=== PATIENT | male | born 1980 | race Caucasian/White ===

== ENCOUNTER 2022-08-05 00:06 | Emergency (ER) | payer BC, SELFPAY ==
[2022-08-05 00:22] VITALS: BP 140/93; PULSE 104; RESP 18; TEMP 36.4; O2SAT 95; BMI 38.2
--- NOTE | 2022-08-05 01:04 | DI.RAD.S_ITS ---
PROCEDURE: XR KNEE LT 3V INDICATIONS: swelling, pain TECHNIQUE: 3 views of the knee were acquired. COMPARISON: None. FINDINGS: Bones: No fractures or dislocations. No suspicious bony lesions. Soft tissues: There is a large joint effusion. No suspicious soft tissue calcifications. IMPRESSION: 1. No fracture or dislocation. 2. Large joint effusion. Dictated by: Glen Sears M.D. on 08/05/2022 at 2:00 Approved by: Glen Sears M.D. on 08/05/2022 at 2:01
--- NOTE | 2022-08-05 02:16 | ED_ITS ---
HPI - Extremity Problem <Elizabeth Dexter DO - Last Filed: 08/06/22 05:52> General Chief complaint: Extremity Problem,Nontraumatic Stated complaint: ghout left knee Time Seen by Provider: 08/05/22 02:15 Source: patient Mode of arrival: Wheelchair Limitations: no limitations History of Present Illness HPI Narrative: This is a 42-year-old male with hypertension, prediabetes and low testosterone who presents with left knee pain and possible gout. Patient states he is had gout in the past in his toe and knee, he states he had some testing but it was negative he states the swelling went away he had been set up for an MRI of his knee. He does not describe arthrocentesis. Patient states he also injected testosterone the day before in his mid thigh on the left side. He states he also went golfing the day before and tweaked his leg and had pain in the posterior knee and thigh after golfing on Wednesday as well as Wednesday. No fevers, no chest pain or shortness of breath no nausea or vomiting no other GI or urinary symptoms. Patient states it has not been red, had any skin changes or w armth. He states it has been swelling. He has pain particularly trying to fully extend it but can move it. He has been able to weightbear. Patient denies any numbness, tingling or other changes. He states he has had swelling in that left knee before and was seen and evaluated for possible gout. He states he was given indomethacin took it for about a week with not much change, continued with Aleve and it ultimately went away. He is not had any surgeries on that knee. He denies any drug allergies. Uses smokeless tobacco, occasional alcohol, no illicit. He is working locally but lives in [place]. Related Data Allergies Allergy/AdvReac Type Severity Reaction Status Date / Time No Known Drug Allergies Allergy Verified 08/05/22 02:40 Review of Systems <DO Shawan Bosch Last Filed: 08/06/22 05:52> Review of Systems ROS Unobtainable: All systems reviewed & are unremarkable except as noted in HPI and below Patient History <Elizabeth Dexter DO - Last Filed: 08/06/22 05:52> tobacco type: smokeless tobacco alcohol intake frequency: a few times a month Substance Use Type: does not use Exam <Elizabeth Dexter DO - Last Filed: 08/06/22 05:52> Narrative Exam Narrative: GENERAL: Alert and oriented x three, male in mild distress. HEENT: Head normocephalic, atraumatic, EOMI, pupils reactive, face symmetric, moist mucous membranes NECK: Supple, full range of motion CARDIOVASCULAR: Regular rate and rhythm without murmurs, rubs or gallops. RESPIRATORY: Breath sounds equal bilaterally, no wheezes rales or rhonchi. ABDOMEN: Soft, nontender. Normoactive bowel sounds all 4 quadrants. No guarding or rebound, rigidity, no mass EXTREMITIES: Normal range of motion, no clubbing. Neurovascularly intact. Patient has small light knee, no warmth, erythema or skin changes. Patient does not have any tenderness or skin changes of the thigh. No tenderness in the posterior knee. Patient has normal flexion little bit increased difficulty with full extension. 5/5 muscle strength. 2+ dorsalis pedis. Normal sensation throughout. NEUROLOGICAL: Cranial nerves II through XII grossly intact. Moving all extremities SKIN: Warm, dry, no petechiae, no rashes or lesions, unable to appreciate the area where patient injected his leg. Initial Vital Signs Initial Vital Signs: Vital Signs Temperature 97.6 F 08/05/22 00:22 Pulse Rate 104 H 08/05/22 00:22 Respiratory Rate 18 08/05/22 00:22 Blood Pressure 140/93 H 08/05/22 00:22 Pulse Oximetry 95 08/05/22 00:22 Oxygen Delivery Method Room Air 08/05/22 00:22 <Husam Ibrahim MD - Last Filed: 08/08/22 12:52> Initial Vital Signs Initial Vital Signs: Vital Signs Temperature 97.6 F 08/05/22 00:22 Pulse Rate 104 H 08/05/22 00:22 Respiratory Rate 18 08/05/22 00:22 Blood Pressure 140/93 H 08/05/22 00:22 Pulse Oximetry 95 08/05/22 00:22 Oxygen Delivery Method Room Air 08/05/22 00:22 Procedures <Elizabeth Dexter DO - Last Filed: 08/06/22 05:52> Joint Aspiration Joint Asp./Inject. 1: Side of body: left Joint Aspirated: knee Ultrasound Guidance: No Skin Prep: sterile prep and drape (povidone-iodine 1%) Local Anesthetic: lidocaine 2% Amount of anesthesia used (mL): 5 Needle Size Used: 20G Fluid Obtained: turbid Total fluid obtained (mL): 50 Medication Injected, if any: Lidocaine Amount of medication injected (mL): 5 Patient Tolerated Procedure: Well and No complications Course <Elizabeth Dexter DO - Last Filed: 08/06/22 05:52> Orders Ordered: Discontinued Medications Ketorolac Tromethamine (Ketorolac 30 Mg/Ml Vial) 15 mg IV NOW ONE Stop: 08/05/22 02:29 Last Admin: 08/05/22 02:41 Dose: Not Given Documented By: Ketorolac Tromethamine (Ketorolac 30 Mg/Ml Vial) 30 mg IM NOW ONE Stop: 08/05/22 02:41 Last Admin: 08/05/22 02:52 Dose: 30 mg Documented By: Lidocaine HCl (Lidocaine 2% Inj Sdv 5ml) 5 ml INJ INTRA-OP ONE Stop: 08/05/22 04:07 Last Admin: 08/05/22 04:12 Dose: 5 ml Documented By: Vital Signs Vital signs: Vital Signs - 8 hr 08/05/22 00:22 08/05/22 04:34 08/05/22 06:47 Temperature 97.6 F Pulse Rate 104 H 89 96 H Respiratory Rate 18 18 18 Blood Pressure 140/93 H 138/93 H 152/77 H Pulse Oximetry 95 97 96 Oxygen Delivery Method Room Air Room Air Room Air 08/05/22 07:51 Temperature 97.9 F Pulse Rate 96 H Respiratory Rate 16 Blood Pressure 132/96 H Pulse Oximetry 96 Oxygen Delivery Method Room Air <Husam Ibrahim MD - Last Filed: 08/08/22 12:52> Course Course Narrative: August 05, 2022 at 7:00 a.m.. Sign-out from Dr. Dexter, patient laboratory studies are pending. Likely not infected knee because patient has been up and walking. Patient received Toradol. Likely discharge home. Orders Ordered: Discontinued Medications Ketorolac Tromethamine (Ketorolac 30 Mg/Ml Vial) 15 mg IV NOW ONE Stop: 08/05/22 02:29 Last Admin: 08/05/22 02:41 Dose: Not Given Documented By: Ketorolac Tromethamine (Ketorolac 30 Mg/Ml Vial) 30 mg IM NOW ONE Stop: 08/05/22 02:41 Last Admin: 08/05/22 02:52 Dose: 30 mg Documented By: Lidocaine HCl (Lidocaine 2% Inj Sdv 5ml) 5 ml INJ INTRA-OP ONE Stop: 08/05/22 04:07 Last Admin: 08/05/22 04:12 Dose: 5 ml Documented By: Vital Signs Vital signs: Vital Signs - 8 hr 08/05/22 00:22 08/05/22 04:34 08/05/22 06:47 Temperature 97.6 F Pulse Rate 104 H 89 96 H Respiratory Rate 18 18 18 Blood Pressure 140/93 H 138/93 H 152/77 H Pulse Oximetry 95 97 96 Oxygen Delivery Method Room Air Room Air Room Air 08/05/22 07:51 Temperature 97.9 F Pulse Rate 96 H Respiratory Rate 16 Blood Pressure 132/96 H Pulse Oximetry 96 Oxygen Delivery Method Room Air MDM - Extremity (Nontraumatic) <Elizabeth Dexter DO - Last Filed: 08/06/22 05:52> Lab Data 08/05/22 02:33 08/05/22 03:03 Labs: Lab Results 08/05/22 08/05/22 08/05/22 Range/Units 02:33 03:03 04:26 WBC 12.4 H (4.5-11.0) X10^3/uL RBC 4.54 (4.5-5.9) X10^6/uL Hgb 13.3 L (13.5-17.5) g/dL Hct 39.6 L (41-53) % MCV 87.0 (80-100) fL MCH 29.2 (26-34) PG MCHC 33.6 (30-36) % RDW 14.0 (11.6-14.8) % Plt Count 182 (150-400) X10^3/uL Neut % (Auto) 70.3 (50-75) % Lymph % (Auto) 15.7 L (25-40) % [place] % (Auto) 11.9 (3-14) % Eos % (Auto) 1.7 L (2-4) % Baso % (Auto) 0.4 (0-2) % Neut # (Auto) 8800 H (9619-8895) /uL Lymph # (Auto) 2000 (0599-3003) /uL [place] # (Auto) 1500 H (0-900) /uL Eos # (Auto) 200 (0-450) /uL Baso # (Auto) 100 (0-100) /uL ESR 21 H (0-15) MM/HR Sodium 135 L (137-145) mmol/L Potassium 3.6 (3.4-5.1) mmol/L Chloride 100 (98-107) mmol/L Carbon Dioxide 29 (22-32) mmol/L BUN 19 (9-20) mg/dL Creatinine 0.89 (0.66-1.25) mg/dL Estimated GFR > 60 (>60) mL/min BUN/Creatinine Ratio 21.3 (6-22) Glucose 134 H (70-100) mg/dL Uric Acid 7.1 (3.5-8.5) mg/dL Calcium 8.5 (8.4-10.2) mg/dL C-Reactive Protein 5.4 H (<1.0) mg/dL Procalcitonin 0.07 (<0.5) ng/mL Fluid Color Yellow Fluid Appearance Cloudy Fluid RBC 5745 /uL Fld Tot Nucleated Cell 23303 /uL Fluid Polynuclear WBCs 94 % Fluid Mononuclear WBCs 6 % Fluid Eosinophils 0 % Fluid Other Cells 0 % Fluid Crystals (NONE) Body Fluid Clot No clots present 08/05/22 Range/Units 04:26 WBC (4.5-11.0) X10^3/uL RBC (4.5-5.9) X10^6/uL Hgb (13.5-17.5) g/dL Hct (41-53) % MCV (80-100) fL MCH (26-34) PG MCHC (30-36) % RDW (11.6-14.8) % Plt Count (150-400) X10^3/uL Neut % (Auto) (50-75) % Lymph % (Auto) (25-40) % [place] % (Auto) (3-14) % Eos % (Auto) (2-4) % Baso % (Auto) (0-2) % Neut # (Auto) (7982-6130) /uL Lymph # (Auto) (0890-9358) /uL [place] # (Auto) (0-900) /uL Eos # (Auto) (0-450) /uL Baso # (Auto) (0-100) /uL ESR (0-15) MM/HR Sodium (137-145) mmol/L Potassium (3.4-5.1) mmol/L Chloride (98-107) mmol/L Carbon Dioxide (22-32) mmol/L BUN (9-20) mg/dL Creatinine (0.66-1.25) mg/dL Estimated GFR (>60) mL/min BUN/Creatinine Ratio (6-22) Glucose (70-100) mg/dL Uric Acid (3.5-8.5) mg/dL Calcium (8.4-10.2) mg/dL C-Reactive Protein (<1.0) mg/dL Procalcitonin (<0.5) ng/mL Fluid Color Fluid Appearance Fluid RBC /uL Fld Tot Nucleated Cell /uL Fluid Polynuclear WBCs % Fluid Mononuclear WBCs % Fluid Eosinophils % Fluid Other Cells % Fluid Crystals None present (NONE) Body Fluid Clot Imaging Data Extremity x-ray #1: Radiologist's Impression: [address] [address] XRay Report Signed Patient: Carlos Berger MR#: [id number] : 1980 Acct:[id number] Age/Sex: 42 / M Date of Service: 08/05/22 Loc: ED Accession Number: [id number] ?? Procedure: XR knee LT 3V Ordering Provider: Elizabeth Dexter D.O. PROCEDURE:? XR KNEE LT 3V ? INDICATIONS:? swelling, pain ? TECHNIQUE:? 3 views of the knee were acquired.? ? COMPARISON:? None. ? FINDINGS:? ? Bones:? No fractures or dislocations.? No suspicious bony lesions.? ? Soft tissues:? There is a large joint effusion.? No suspicious soft tissue calcifications.? ? ? IMPRESSION:? ? 1. No fracture or dislocation. ? 2. Large joint effusion. ? ? Dictated by: Glen Sears M.D. on 08/05/2022 at 2:00 ? ? Approved by: Glen Sears M.D. on 08/05/2022 at 2:01?? MDM Narrative Medical decision making narrative: This is a 42-year-old male with complaint of left knee swelling that has been intermittent and not recent. He has had suspected gout in the past. Patient s tates he played golf on Wednesday and cause some pain to his knee, injected himself with testosterone in his left mid to upper thigh and states this feels similar to when they thought he had gout in his knee. X-ray shows effusion, no fractures or other changes. Patient does not have warmth or erythema. Labs including CBC, ESR, CRP, uric acid show: Slightly elevated ESR 21, CRP is slightly elevated. Mild leukocytosis, no leftward shift. Hemoglobin of 13. Uric acid is negative. Procalcitonin is negative. Glucose is 134. Discussed with patient he would like to proceed with arthrocentesis. Discussed risks versus benefits patient gave verbal consent. Patient had approximately 50 mL pulled off, injected lidocaine at the site for anesthesia. Does not appear turbulent but slightly turbid. Sent for cell count, crystals and culture. Patient signed out to Dr. Ibrahim while still waiting cell count, crystals for workup. Patient's pain is much improved he had about 50 mL pulled off. Does not appear septic or toxic. Fluid was a bit turbinates would wait for results before discharge. MDM CC: Left knee swelling Complicating co-morbidities: Recent left thigh testosterone injection Data collected from: Patient Medical records reviewed: No recent visits for this complaint Differential considered: Includes but not limited to septic knee septic joint gout Exam documented above, pertinent findings include: Edematous left knee Lab Test results independently reviewed as above. Pertinent findings: CBC with WBC 12.4 synovial fluid collection yellow color cloudy appearance RBC 5745, total nucleated cell 68,847, WBC 94, WBC 6, C-reactive protein 5.4, procalcito maximo 0.07 Imaging studies independently reviewed: X-ray left knee large joint effusion Consultations: 8:[address] East, on-call Orthopedics. Reviewed laboratory studies and exam. This is not septic joint. No antibiotics or admission indicated. He can follow up in the office. He can be discharged home. Treatments: Toradol Re-evaluations: 8:30 a.m.. Patient has been up and walking out of the room checking up on his results. No difficulty with walking. No fever. I updated him my conversation with Orthopedics as well as laboratory results. At this time they are reassuring. Return precautions reviewed with him. Likely not infection. No antibiotics indicated. He encouraged him to stop using testosterone shots until follow up with provider and orthopedics. Not toxic at discharge. Discussion: Appropriate for discharge home. Patient up and walking here. Laboratory studies reflect likely inflammatory response but not infection. Including WBC. Patient up and walking, clinically not septic joint. Not toxic at discharge. I did review with orthopedics. Return precautions reviewed with patient. He is pleased with the plan and results and desires discharge home Diagnosis: Left knee effusion <Husam Ibrahim MD - Last Filed: 08/08/22 12:52> Lab Data Labs: Lab Results 08/05/22 08/05/22 08/05/22 Range/Units 02:33 03:03 04:26 WBC 12.4 H (4.5-11.0) X10^3/uL RBC 4.54 (4.5-5.9) X10^6/uL Hgb 13.3 L (13.5-17.5) g/dL Hct 39.6 L (41-53) % MCV 87.0 (80-100) fL MCH 29.2 (26-34) PG MCHC 33.6 (30-36) % RDW 14.0 (11.6-14.8) % Plt Count 182 (150-400) X10^3/uL Neut % (Auto) 70.3 (50-75) % Lymph % (Auto) 15.7 L (25-40) % [place] % (Auto) 11.9 (3-14) % Eos % (Auto) 1.7 L (2-4) % Baso % (Auto) 0.4 (0-2) % Neut # (Auto) 8800 H (7532-2560) /uL Lymph # (Auto) 2000 (5372-8322) /uL [place] # (Auto) 1500 H (0-900) /uL Eos # (Auto) 200 (0-450) /uL Baso # (Auto) 100 (0-100) /uL ESR 21 H (0-15) MM/HR Sodium 135 L (137-145) mmol/L Potassium 3.6 (3.4-5.1) mmol/L Chloride 100 (98-107) mmol/L Carbon Dioxide 29 (22-32) mmol/L BUN 19 (9-20) mg/dL Creatinine 0.89 (0.66-1.25) mg/dL Estimated GFR > 60 (>60) mL/min BUN/Creatinine Ratio 21.3 (6-22) Glucose 134 H (70-100) mg/dL Uric Acid 7.1 (3.5-8.5) mg/dL Calcium 8.5 (8.4-10.2) mg/dL C-Reactive Protein 5.4 H (<1.0) mg/dL Procalcitonin 0.07 (<0.5) ng/mL Fluid Color Yellow Fluid Appearance Cloudy Fluid RBC 5745 /uL Fld Tot Nucleated Cell 18761 /uL Fluid Polynuclear WBCs 94 % Fluid Mononuclear WBCs 6 % Fluid Eosinophils 0 % Fluid Other Cells 0 % Fluid Crystals (NONE) Body Fluid Clot No clots present 08/05/22 Range/Units 04:26 WBC (4.5-11.0) X10^3/uL RBC (4.5-5.9) X10^6/uL Hgb (13.5-17.5) g/dL Hct (41-53) % MCV (80-100) fL MCH (26-34) PG MCHC (30-36) % RDW (11.6-14.8) % Plt Count (150-400) X10^3/uL Neut % (Auto) (50-75) % Lymph % (Auto) (25-40) % [place] % (Auto) (3-14) % Eos % (Auto) (2-4) % Baso % (Auto) (0-2) % Neut # (Auto) (2323-9632) /uL Lymph # (Auto) (2379-7940) /uL [place] # (Auto) (0-900) /uL Eos # (Auto) (0-450) /uL Baso # (Auto) (0-100) /uL ESR (0-15) MM/HR Sodium (137-145) mmol/L Potassium (3.4-5.1) mmol/L Chloride (98-107) mmol/L Carbon Dioxide (22-32) mmol/L BUN (9-20) mg/dL Creatinine (0.66-1.25) mg/dL Estimated GFR (>60) mL/min BUN/Creatinine Ratio (6-22) Glucose (70-100) mg/dL Uric Acid (3.5-8.5) mg/dL Calcium (8.4-10.2) mg/dL C-Reactive Protein (<1.0) mg/dL Procalcitonin (<0.5) ng/mL Fluid Color Fluid Appearance Fluid RBC /uL Fld Tot Nucleated Cell /uL Fluid Polynuclear WBCs % Fluid Mononuclear WBCs % Fluid Eosinophils % Fluid Other Cells % Fluid Crystals None present (NONE) Body Fluid Clot MDM Narrative Medical decision making narrative: This is a 42-year-old male with complaint of left knee swelling that has been intermittent and not recent. He has had suspected gout in the past. Patient states he played golf on Wednesday and cause some pain to his knee, injected himself with testosterone in his left mid to upper thigh and states this feels similar to when they thought he had gout in his knee. X-ray shows effusion, no fractures or other changes. Patient does not have warmth or erythema. Labs including CBC, ESR, CRP, uric acid show: Slightly elevated ESR 21, CRP is slightly elevated. Mild leukocytosis, no leftward shift. Hemoglobin of 13. Uric acid is negative. Procalcitonin is negative. Glucose is 134. Discussed w ith patient he would like to proceed with arthrocentesis. Discussed risks versus benefits patient gave verbal consent. Patient had approximately 50 mL pulled off, injected lidocaine at the site for anesthesia. Does not appear turbulent but slightly turbid. Sent for cell count, crystals and culture. After history and exam CBC CMP synovial fluid collection x-ray knee MDM CC: Left knee swelling Complicating co-morbidities: Recent left thigh testosterone injection Data collected from: Patient Medical records reviewed: No recent visits for this complaint Differential considered: Includes but not limited to septic knee septic joint gout Exam documented above, pertinent findings include: Edematous left knee Lab Test results independently reviewed as above. Pertinent findings: CBC with WBC 12.4 synovial fluid collection yellow color cloudy appearance RBC 5745, total nucleated cell 68,847, WBC 94, WBC 6, C-reactive protein 5.4, procalcitonin 0.07 Imaging studies independently reviewed: X-ray left knee large joint effusion Consultations: 8:[address] East, on-call Orthopedics. Reviewed laboratory studies and exam. This is not septic joint. No antibiotics or admission indicated. He can follow up in the office. He can be discharged home. Treatments: Toradol Re-evaluations: 8:30 a.m.. Patient has been up and walking out of the room checking up on his results. No difficulty with walking. No fever. I updated him my conversation with Orthopedics as well as laboratory results. At this time they are reassuring. Return precautions reviewed with him. Likely not infection. No antibiotics indicated. He encouraged him to stop using testosterone shots until follow up with provider and orthopedics. Not toxic at discharge. Discussion: Appropriate for discharge home. Patient up and walking here. Laboratory studies reflect likely inflammatory response but not infection. Including WBC. Patient up and walking, clinically not septic joint. Not toxic at discharge. I did review with orthopedics. Return precautions reviewed with patient. He is pleased with the plan and results and desires discharge home Diagnosis: Left knee effusion Discharge Plan Departure Patient Disposition: Home Clinical Impression: Effusion of knee joint, left Instructions: DI for Knee Pain Activity Restrictions/Additional Instructions: Please do not continue testosterone injections at this time. Please call orthopedic provider today for office appointment this week for re-evaluation and whether to continue testosterone injections. Return if worse if any questions or concerns. At this time your laboratory studies for any are reassuring. It may have been inflammatory response to the testosterone. No antibiotics are indicated at this time. Does not appear to be infected knee. However, return if worse if any questions or concerns or if any fever or painful knee with walking. Referrals: Dharmesh East MD [Physician] - Stand Alone Forms: Patient Portal/API
[2022-08-05 02:48] LABS: Add Manual Diff / Slide Review NO; Basophils Absolute Auto 100 /uL (0-100); Basophils Percent Auto 0.4 % (0-2); Eosinophils Absolute Auto 200 /uL (0-450); Eosinophils Percent Auto 1.7 % (2-4); Hematocrit 39.6 % (41-53); Hemoglobin 13.3 g/dL (13.5-17.5); Lymphocytes Absolute Auto 2000 /uL (1100-4500); Lymphocytes Percent Auto 15.7 % (25-40); Mean Corpuscular HGB Conc 33.6 % (30-36); Mean Corpuscular Hemoglobin 29.2 PG (26-34); Monocytes Absolute Auto 1500 /uL (0-900); Monocytes Percent Auto 11.9 % (3-14); Neutrophils Absolute Auto 8800 /uL (1500-7000); Neutrophils Percent Auto 70.3 % (50-75); Platelet Count 182 X10^3/uL (150-400); Red Blood Cell Count 4.54 X10^6/uL (4.5-5.9); White Blood Cell Count 12.4 X10^3/uL (4.5-11.0)
[2022-08-05] MEDS: KETOROLAC 30 MG/ML VIAL IM (02:52)
[2022-08-05 03:13] LABS: Erythrocyte Sedimentation Rate 21 MM/HR (0-15)
[2022-08-05 03:24] LABS: BUN Creatinine Ratio 21.3 (6-22); Blood Urea Nitrogen 19 mg/dL (9-20); Calcium 8.5 mg/dL (8.4-10.2); Carbon Dioxide 29 mmol/L (22-32); Chloride 100 mmol/L (98-107); Estimated Glomerular Filt Rate > 60 mL/min (>60); Glucose 134 mg/dL (70-100); HEMOLYSIS < 15 (0-50); Potassium 3.6 mmol/L (3.4-5.1); Sodium 135 mmol/L (137-145); Uric Acid 7.1 mg/dL (3.5-8.5)
[2022-08-05 03:41] LABS: Procalcitonin 0.07 ng/mL (<0.5)
[2022-08-05 03:56] LABS: C-Reactive Protein Quant 5.4 mg/dL (<1.0)
[2022-08-05] MEDS: LIDOCAINE 2% INJ SDV 5ML 5 ML INJ (04:12)
[2022-08-05 04:34] VITALS: BP 138/93; PULSE 89; RESP 18; O2SAT 97
[2022-08-05 06:47] VITALS: BP 152/77; PULSE 96; RESP 18; O2SAT 96
[2022-08-05 07:09] LABS: Body Fluid Red Blood Cells 5745 /uL; Body Fluid Tot Nucleated Cells 68847 /uL
[2022-08-05 07:26] LABS: Crystals Body Fluid - IN-HOUSE NONE Present
[2022-08-05 07:51] VITALS: BP 132/96; PULSE 96; RESP 16; TEMP 36.6; O2SAT 96
[2022-08-05 07:58] LABS: Body Fluid Appearance CLOUDY; Body Fluid Clotted? NO CLOTS PRESENT; Body Fluid Color YELLOW
[2022-08-05 08:00] LABS: Eosinophils Body Fluid 0 %; Mononuclear WBC Body Fluid 6 %; Other Cells Body Fluid 0 %; Polynuclear WBC Body Fluid 94 %
== END 2022-08-05 08:44 | disposition home or self-care (01) ==
PROVIDERS: Emergency Medicine; Emergency Provider Emergency Medicine
DX: M25.462 Effusion, left knee (principal)
CPT/HCPCS: 20610; 36415; 73562; 80048; 84145; 84550; 85025; 85651; 86140; 87070; 87075; 87205; 89051; 89060; 96372; 99284; J1885